=== PATIENT | female | born 1980 | race Caucasian/White ===

== ENCOUNTER 2017-11-03 11:13 | Inpatient (IN) | payer OTHER ==
[2017-11-03 11:46] VITALS: BMI 27.6
[2017-11-03] MEDS ORDERED: Oxytocin 30 units/LR 500ML 30 U/500 ML BAG IV ONE ×2 (11:46→11:52)
[2017-11-03] MEDS ORDERED: Lactated Ringer's 1,000 ML IV ONE (11:46)
[2017-11-03] MEDS ORDERED: ceFAZolin IV 2 gm in Dextrose 2 GM/50 ML BAG IVPB ONE (11:51)
[2017-11-03 12:38] VITALS: O2SAT 100
[2017-11-03 12:46] LABS: ALB/GLOB RATIO 0.9 (1.0-2.1); ALBUMIN 3.5 g/dL (3.5-5.0); ALT/SGPT 22 U/L (9-52); AMYLASE 127 U/L (30-110); AST/SGOT 24 U/L (14-36); BLOOD UREA NITROGEN 7 mg/dl (7-17); CALCIUM 8.7 mg/dL (8.4-10.2); GFR AFRICAN-AMERICAN > 60; GFR NON-AFRICAN AMERICAN > 60; LIPASE 229 U/L (23-300)
[2017-11-03] MEDS ORDERED: Lactated Ringer's 1,000 ML IV SCH (13:10)
[2017-11-03 13:24] LABS: BASO % 0.4 % (0.0-2.0); EOS # 0.1 K/uL (0.0-0.7); HEMOGLOBIN 10.4 g/dL (12.0-16.0); LYMPH # 1.5 K/uL (1.0-4.3); LYMPH % 24.4 % (20.0-40.0); MEAN CELL VOLUME 78.5 fl (81.0-99.0); MEAN CORPUSCULAR HEMOGLOBIN 25.1 pg (27.0-31.0); MEAN PLATELET VOLUME 9.8 fl (7.2-11.7); MONO # 0.5 K/uL (0.0-0.8); NEUT # 4.2 K/uL (1.8-7.0); NEUT % 66.2 % (50.0-75.0); NRBC % 0.1 % (0.0-0.0); RBC 4.12 Mil/uL (3.80-5.20); RED CELL DISTRIBUTION WIDTH 16.6 % (11.5-14.5); WHITE BLOOD COUNT 6.3 K/uL (4.8-10.8)
[2017-11-03] MEDS: Lactated Ringer's 1,000 ML IV SCH ×2 (14:15→19:03)
--- NOTE | 2017-11-03 14:28 | OBADHP ---
Datetime: 11/03/2017 11:40 IP Chief Complaint Other: N/V Admit Comment, IP Provider: 37yo IUP at 39+w c/o abd pain since this AM. Some N/V irregular and non radiating. No SROM; no VB; decreased FM PNC: CP Dr Robertson chart rev'd present preg IVF AMA (no amnio) GBS+; now she decelined POBGYNH: No STD; C/S x 1 (failure to descend) PMH: deneis PSH: C/S x 1 allergy: peanut PSoH: denies smoking ETOH drugs A: IUP at 39w N/V in preg (poss dehyration) - check labs/IVF C/S x 1 declines AMA declined amnio Hx IVF PLAN: IVF; labs; informed consent for sectoin obtained Pelvic Type - PN: Adequate Extremities - PN: Normal Abdomen - PN: Normal Back - PN: Normal Breast - PN: Normal Lungs - PN: Normal Heart - PN: Normal Thyroid - PN: Normal Neurologic - PN: Normal HEENT - PN: Normal General - PN: Normal Presentation-Admit: Vertex Membranes, Provider: Intact Contraction Comments Provider: irritability Pool Provider: Negative IP Hx Assessment: The History has been Reviewed and is Current Vital Signs Provider: Reviewed IP Chief Complaint: Uterine contractions; Decreased movement; Other FHR Category Provider Fetus A: Category I NICHD Decel Fetus A IP Provider: None Dilatation, Provider: 1 Genitourinary Exam: Normal DTRs - PN: Normal EGA AdmitDate IP: 39.4 IP Adm Impression: Term, intrauterine ; No Active Labor; Intact Membranes IP Admit Plan: Admit to unit
[2017-11-03] MEDS ORDERED: Oxycodone/Acetaminophen 5/325 mg Tab PO PRN (15:13)
[2017-11-03] MEDS ORDERED: Morphine 1 mg/ml preservative-free Inj(Duramorph) ONE (15:26)
[2017-11-03] MEDS ORDERED: Morphine 1 mg/ml preservative-free Inj(Duramorph) IT ONE (15:59)
[2017-11-03] MEDS ORDERED: DiphenhydrAMINE 50 mg/ml Inj IVP PRN (15:59)
[2017-11-03] MEDS ORDERED: Naloxone 0.4 mg/ml Inj (Adult) IVP PRN (15:59)
[2017-11-04 06:36] LABS: HEMOGLOBIN 9.8 g/dL (12.0-16.0); MEAN CELL VOLUME 78.4 fl (81.0-99.0); MEAN CORPUSCULAR HEMOGLOBIN 25.3 pg (27.0-31.0); MEAN CORPUSCULAR HGB CONC 32.3 g/dL (33.0-37.0); RBC 3.88 Mil/uL (3.80-5.20); RED CELL DISTRIBUTION WIDTH 16.5 % (11.5-14.5); WHITE BLOOD COUNT 9.8 K/uL (4.8-10.8)
--- NOTE | 2017-11-04 08:44 | OBPPN ---
Datetime: 11/04/2017 08:40 PP Pain Prov: Within normal limits PP Nausea Prov: Denies PP Flatus Prov: Yes PP Breasts Prov: Normal PP Heart Prov: Normal PP Lungs Prov: Normal PP Abdomen/Uterus Prov: Normal PP Lochia Prov: Not Done PP Vulva/Perineum Prov: Not Done PP CVA Tenderness Prov: Normal PP Extremities Prov: Normal PP C/S Incision Prov: Normal PP Impression Prov: Normal progression PP Plan Prov: Continue present management PP Progress Note Prov: POD1 doing well incision c/d/i ambulate, d/c tolentino, IVF analgesia as needed Vital Signs Provider PP: Reviewed
--- NOTE | 2017-11-05 10:14 | OBPPN ---
Datetime: 11/05/2017 10:04 PP Pain Prov: Within normal limits PP Nausea Prov: Denies PP Flatus Prov: Yes PP BM Prov: Yes PP Breasts Prov: Normal PP Heart Prov: Normal PP Lungs Prov: Normal PP Abdomen/Uterus Prov: Normal PP Lochia Prov: Normal PP Vulva/Perineum Prov: Normal PP CVA Tenderness Prov: Normal PP Extremities Prov: Normal PP Comments Phys Exam Prov: Fundus firm under umbilicus Incision clean/dry/intact PP Impression Prov: Normal progression PP Plan Prov: Continue present management PP Progress Note Prov: Patient denies CP, no SOB, no N/V, tolerating PO diet. abdominal pain tolerab le meds, mild lochia, +flatus A/P POD #2 1. Continue routine orders 2. Percocet/Motrin prn pain 3. Encourage ambulation/ IP PP Procedures: None Vital Signs Provider PP: Reviewed; Within Normal Limits
--- NOTE | 2017-11-06 08:25 | OP ---
PROCEDURE DATE: 11/03/2017 PREOPERATIVE DIAGNOSES: 1. Intrauterine at 39 plus weeks gestation. 2. Previous section x1, declining vaginal after section. POSTOPERATIVE DIAGNOSES: 1. Intrauterine at 39 plus weeks gestation. 2. Previous section x1, declining vaginal after section. PROCEDURE: Repeat low-transverse section via Pfannenstiel incision. SURGEON: Roney Robertson DO PIN OR CLIP FASTENER: Jatinder Foss MD (Dr. Foss is a board certified DRIVER UTILITY WORKER physician who happened to be available for labor and delivery. His presence was vital and necessary for the procedure. He was present from the time of skin incision to delivery of the infant to the closure of the skin). SECOND PIN OR CLIP FASTENER: Dr. Blake, PGY-1 ANESTHESIOLOGIST: Dr. Silva. TYPE OF ANESTHESIA: Spinal. OPERATIVE FINDINGS: Live female infant delivered with Kiwi vacuum extraction x1 with no pop-off less than 5 seconds from cephalic presentation. Clear amniotic fluid was noted. Placenta was delivered intact spontaneously. Ovaries and tubes appeared to be within normal limits grossly. She remained hemodynamically stable throughout the procedure. All equipments, sponges, and needles accounted for. She was brought to the recovery room in stable condition. DESCRIPTION OF PROCEDURE: The patient was brought to the operating room. Compression boots were placed on both lower extremities. Catheter was placed draining clear urine. After spinal anesthesia was given, she was placed in a supine position. She was then draped and prepped in the usual sterile manner. Once adequate anesthesia was obtained, an incision was made through the skin excising the previous surgical scar. This was done using a scalpel. The incision was then taken down to the underlying fascia using electrocautery. The fascia was nicked in the midline and extended bilaterally using electrocautery, inferior aspect of the fascia was grasped using two Cedrick clamps, tented up, and the rectus muscle was both bluntly and sharply dissected. Using electrocautery, the same was done with the superior aspect of the fascia in the midline superiorly. The rectus muscle was grasped using 2 Allis clamps, tented up. Careful dissection was done using a scalpel to finally identify the peritoneum. This was incised using Metzenbaum scissors. Upon entering the peritoneal cavity, some adhesions were noted. Incision was then extended superiorly and inferiorly with direct visualization of bladder and intestines. Careful dissection was performed to remove the adhesions along the anterior abdominal wall. In the lower uterine aspect, a bladder blade was then inserted. The lower uterine segment was noted to be very thin. A bladder flap was created by incising peritoneum on the uterus and then extending bilaterally. Bladder flap was created digitally. Bladder blade was then inserted behind the bladder flap. A low transverse incision was made using a scalpel. The thin lower uterine segment was scored with the scalpel, and upon entering the uterus, insertion was then extended bilateral bluntly. Rupture of membranes was performed using forceps with teeth. Attempt was made to deliver the head, but because of the adhesions and tight incision, decision was made to incise the rectus muscle bilaterally. This was done using Band-Aid scissors. Difficulty in delivery, decision was made to use a Kiwi, this was then applied, and the was then delivery atraumatically as possible, less than 5 seconds with no pop-offs. Packing was removed. The infant was then delivered as atraumatically as possible with bulb suctioned nasopharyngeally. Cord was clamped and cut. Infant was handed to the oil burner technician in attendance. Cord bloods were obtained. Placenta was delivered intact spontaneously. Uterus was then exteriorized, cleared of debris and clots. Areas of the lysis of adhesions noted to have good hemostasis. Good contracture of the uterus was noted. Uterus was cleared of debris and clots. A 0 Vicryl suture was used to close the first layer of the uterus. Second layer of the uterus was closed using 0 Vicryl suture imbricating the first layer. Good hemostasis was assured. Ovaries and tubes appeared to be within normal limits grossly. Posterior cul-de-sac was noted to be clear of debris and clots. Uterus was placed back into the peritoneal cavity. Copious irrigation was performed. Lower uterine segment was noted to have good hemostasis. Thereafter, all equipments were removed and accounted for. An 0 Vicryl suture was used to approximate the peritoneum in a running fashion. The rectus muscle was noted to have good hemostasis. This was incised using the Band-Aid scissors, this was approximated using 0 Vicryl suture x2. A 0 Vicryl suture was used to approximate the fascial layer. A 2-0 Vicryl suture was used to approximate the subcuticular layer x3. Hemostasis assured. A 3-0 Vicryl suture was used to approximate the skin. Steri-Strips and pressure bandages were applied as well as Dermabond. All equipments were removed and accounted for. Roney Robertson DO
--- NOTE | 2017-11-06 10:37 | OBPPN ---
Datetime: 11/06/2017 10:22 PP Pain Prov: Within normal limits PP Nausea Prov: Denies PP Flatus Prov: Yes PP BM Prov: No PP Breasts Prov: Normal PP Heart Prov: Normal PP Lungs Prov: Normal PP Abdomen/Uterus Prov: Normal PP Vulva/Perineum Prov: Normal PP Extremities Prov: Normal PP C/S Incision Prov: Normal PP Progress Prov: Normal PP Comments Phys Exam Prov: pfannensteil incision c/d/i rt breast engorged fundus 2cm below, firm nt PP Impression Prov: Normal progression PP Plan Prov: Discharge PP Progress Note Prov: s: pain controlled w/ motrin. not taking percocet. has not yet had bm. tolera ting reg diet. i: pod 3 s/p repeat cd doing well p: d/c home dulcolax supp prn prior to dc rx [id number] to take w/ oj d/w pt rx senokot s rx motrin IP PP Procedures: None
--- NOTE | 2017-11-06 10:40 | OBDCSUM ---
Datetime: 11/06/2017 09:45 Discharged to, Provider: Home Follow up at, Provider: Susie Disch Instr Activity: Normal activity; May Shower Disch Instr Diet: Regular Discharge Instructions, Provider: Specific instructions as noted Discharge Diagnosis, Provider: Term Delivered Discharge Time: 11/06/2017 10:36 Follow up in weeks, Provider: in 7-10days Discharge Instruct Comment, Prov: pp and postop Disch Activity Restrictions: No exercising; No lifting; No driving; No sexual activity; Nothing in v ag[place] - [place], tampons, douche Discharge Comment, Provider: i: pod 3 s/p repeat cd doing well p: d/c home dulcolax supp prn prior to dc rx [id number] to take w/ oj d/w pt rx senokot s rx motrin Contraception after Delivery: Undecided
[2017-11-06 17:59] VITALS: BP 113/67; PULSE 72; RESP 19; TEMP 98.4
== END 2017-11-06 13:50 | disposition home or self-care (01) | DRG 766 ==
LOC: H.EROB2 11:13 → H.L&D 11:15 → H.EROB2 11:45 → H.L&D 11:46 → H.OB/GYN 20:13
PROVIDERS: ADMIT Obstetrics & Gynecology; ATTEND Obstetrics & Gynecology
PROC: 10D00Z1 Extraction of Products of Conception, Low, Open Approach (ICD-10-PCS; principal; 2017-11-03)
PROC: 4A1HXCZ Monitoring of Products of Conception, Cardiac Rate, External Approach (ICD-10-PCS; 2017-11-03)
DX: O34.211 Maternal care for low transverse scar from previous cesarean delivery (principal); Z37.0 Single live birth; O99.824 Streptococcus B carrier state complicating childbirth; N85.8 Other specified noninflammatory disorders of uterus; O36.8130 Decreased fetal movements, third trimester, not applicable or unspecified; Z3A.39 39 weeks gestation of pregnancy